=== PATIENT | female | born 1990 | race American Indian/Alaskan Native ===

== ENCOUNTER 2021-01-05 20:05 | Emergency (ER) | payer BC, MEDICAID ==
[2021-01-05 20:41] VITALS: BP 136/92
[2021-01-05] MEDS ORDERED: predniSONE 20 MG TAB PO ONE (20:46)
[2021-01-05] MEDS ORDERED: CLINDAMYCIN 150 MG CAP PO ONE (20:46)
[2021-01-05] MEDS ORDERED: IBUPROFEN 600 MG TAB PO ONE (20:46)
--- NOTE | 2021-01-05 20:55 | Emergency Department Report ---
- General Chief Complaint: Earache Stated Complaint: EAR PAIN Source: patient Mode of arrival: Ambulatory Limitations: No Limitations - History of Present Illness Initial Comments: Patient is a 30 yo AA female with no past medical history who presents to the ED with c/o acute onset persistent severe right ear pain for the last 2 weeks, worse in the last 2 days. Patient states that she was initially evaluated for the same at another hospital and given a 3 days course of Azithromycin with pain medications. Patient states that these medications did not help and that in the last 2 days the ear pain has worsened and now has muffled hearing on right ear. Patient denies dizziness, nausea, vomiting, chest pain, headache, chest pain, cough, sore throat, nasal and sinus congestion, fever and chills or vision changes. MD Complaint: other (severe right ear pain) -: Sudden, week(s) (2) Severity: severe Severity scale (0 -10): 9 Quality: sharp, aching Consistency: constant Improves With: nothing Worsens With: nothing Associated Symptoms: denies other symptoms, ear pain (right ear). denies: fever, chills, headache, rhinorrhea, nasal congestion, sore throat, cough, chest pain, shortness of breath, abdominal pain, nausea, vomiting, diarrhea, dysuria, rash, confusion, right sweats, weight loss, hoarseness Treatments Prior to Arrival: none - Related Data Previous Rx's Medication Instructions Recorded Last Taken Type Ciprofloxacin HCl/Dexameth 1 drop OTIC BID #7.5 ml 01/05/21 Unknown Rx [Ciprodex Otic Suspension] Clindamycin [Clindamycin CAP] 300 mg PO Q6H #40 capsule 01/05/21 Unknown Rx Ibuprofen [Motrin] 600 mg PO Q8H PRN #30 tablet 01/05/21 Unknown Rx predniSONE [Deltasone] 40 mg PO QDAY #10 tab 01/05/21 Unknown Rx traMADoL [Ultram] 50 mg PO Q6HR PRN #12 tablet 01/05/21 Unknown Rx ED Review of Systems ROS: Stated complaint: EAR PAIN Other details as noted in HPI Constitutional: denies: chills, fever Eyes: denies: eye pain, eye discharge, vision change ENT: ear pain (severe right ear pain). denies: throat pain, dental pain, hearing loss, congestion Respiratory: denies: cough, shortness of breath, wheezing Cardiovascular: denies: chest pain, palpitations Endocrine: no symptoms reported Gastrointestinal: denies: abdominal pain, nausea, vomiting, diarrhea, constipation, hematemesis, hematochezia Genitourinary: denies: urgency, dysuria, discharge Musculoskeletal: denies: back pain, joint swelling, arthralgia Skin: denies: rash, lesions Neurological: denies: headache, weakness, numbness, paresthesias, confusion, abnormal gait Psychiatric: denies: anxiety, depression Hematological/Lymphatic: denies: easy bleeding, easy bruising ED Past Medical Hx - Social History Smoking Status: Never Smoker Substance Use Type: None - Medications Home Medications: Home Medications Medication Instructions Recorded Confirmed Last Taken Type Ciprofloxacin HCl/Dexameth 1 drop OTIC BID #7.5 ml 01/05/21 Unknown Rx [Ciprodex Otic Suspension] Clindamycin [Clindamycin CAP] 300 mg PO Q6H #40 capsule 01/05/21 Unknown Rx Ibuprofen [Motrin] 600 mg PO Q8H PRN #30 tablet 01/05/21 Unknown Rx predniSONE [Deltasone] 40 mg PO QDAY #10 tab 01/05/21 Unknown Rx traMADoL [Ultram] 50 mg PO Q6HR PRN #12 tablet 01/05/21 Unknown Rx ED Physical Exam - General Limitations: No Limitations General appearance: alert, in no apparent distress - Head Head exam: Present: atraumatic, normocephalic, normal inspection - Eye Eye exam: Present: normal appearance, PERRL, EOMI Pupils: Present: normal accommodation - ENT ENT exam: Present: normal orophraynx, mucous membranes moist, other (swollen tender right ear canal; buldging erythematous right TM) - Neck Neck exam: Present: normal inspection, full ROM, lymphadenopathy. Absent: tenderness - Respiratory Respiratory exam: Present: normal lung sounds bilaterally. Absent: respiratory distress, wheezes, rales, rhonchi, chest wall tenderness, accessory muscle use, decreased breath sounds, prolonged expiratory - Cardiovascular Cardiovascular Exam: Present: regular rate, normal rhythm, normal heart sounds. Absent: systolic murmur, diastolic murmur, rubs, gallop - GI/Abdominal GI/Abdominal exam: Present: soft, normal bowel sounds. Absent: distended, tenderness, guarding, hyperactive bowel sounds, hypoactive bowel sounds, organomegaly - Extremities Exam Extremities exam: Present: normal inspection, full ROM, normal capillary refill - Back Exam Back exam: Present: normal inspection, full ROM. Absent: tenderness, CVA tenderness (R), CVA tenderness (L), muscle spasm, paraspinal tenderness, vertebral tenderness - Neurological Exam Neurological exam: Present: alert, oriented X3, CN II-XII intact, normal gait, reflexes normal - Psychiatric Psychiatric exam: Present: normal affect, normal mood - Skin Skin exam: Present: warm, dry, intact, normal color. Absent: rash ED Course Vital Signs 01/05/21 20:37 Pulse Rate 90 Respiratory 18 Rate Blood Pressure 136/92 O2 Sat by Pulse 100 Oximetry ED Medical Decision Making - Medical Decision Making This is a 30 yo AA female with no past medical history who presents to the ED with c/o acute onset persistent severe right ear pain for the last 2 weeks, worse in the last 2 days. Patient states that she was initially evaluated for the same at another hospital and given a 3 days course of Azithromycin with pain medications. Patient states that these medications did not help and that in the last 2 days the ear pain has worsened and now has muffled hearing on right ear. In the ED, patient is alert and oriented x 3 and is in no acute distress but appears to be in pain. Patient was treated for pain and also given initial oral antibiotics. Patient was thereafter discharged home on pain medications, oral antibiotics and ear drops. Patient was given a referral to the ENT physician, Dr. León for follow up in 3-5 days. Patient was also advised to follow up with her PCP in 7-10 days for reevaluation or return to the ED immediately if symptoms get worse. - Differential Diagnosis Otitis media, otitis externa; Lymphadenopathy; URI Critical care attestation.: If time is entered above; I have spent that time in minutes in the direct care of this critically ill patient, excluding procedure time. ED Disposition Clinical Impression: Acute otitis media with effusion of right ear Acute otitis externa of right ear Qualifiers: Otitis externa type: unspecified type Qualified Code(s): H60.501 - Unspecified acute noninfective otitis externa, right ear Disposition: DC/TX-65 PSY HOSP/PSY UNIT Is pt being admited?: No Does the pt Need Aspirin: No Condition: Stable Instructions: Ear Drops, Adult, [id number], Otitis Media, Adult, [id number], Otitis Externa, [id number] Additional Instructions: Take medication with food, drink plenty of fluids and follow up with your Primary care physician in 7-10 days. Consider following up with the ENT Physician in 3-5 days for reevaluation. Return to the ED immediately if symptoms get worse. Prescriptions: Ciprofloxacin HCl/Dexameth [Ciprodex Otic Suspension] 1 drop OTIC BID #7.5 ml Clindamycin [Clindamycin CAP] 300 mg PO Q6H #40 capsule predniSONE [Deltasone] 40 mg PO QDAY #10 tab Ibuprofen [Motrin] 600 mg PO Q8H PRN #30 tablet PRN Reason: Pain traMADoL [Ultram] 50 mg PO Q6HR PRN #12 tablet PRN Reason: Pain Referrals: [facility] [Provider Group] - 7-10 days FRANCISCA LEÓN MD [Staff Physician] - 3-5 Days Forms: Work/School Release Form(ED) Time of Disposition: 20:54 Print Language: MACEDONIAN
== END 2021-01-05 21:36 ==
LOC: ED 20:05
DX: H65.91 Unspecified nonsuppurative otitis media, right ear (principal); H60.501 Unspecified acute noninfective otitis externa, right ear; Z79.1 Long term (current) use of non-steroidal anti-inflammatories (NSAID); Z79.2 Long term (current) use of antibiotics; Z79.899 Other long term (current) drug therapy
CPT/HCPCS: 99282; J7512

== ENCOUNTER 2021-02-05 16:34 | Emergency (ER) | payer BC ==
[2021-02-05] MEDS ORDERED: ACETAMINOPHEN 325 MG TAB PO ONE (17:27)
[2021-02-05] MEDS ORDERED: ONDANSETRON 4 MG ODT TAB PO ONE (17:27)
--- NOTE | 2021-02-05 17:31 | Event Note ---
ED Screening Note Date of service: 02/05/21 Time: 17:25 ED Screening Note: 30-year-old -[place] female presents to the emergency room for abdominal pain, nausea vomiting diarrhea body aches chills dizziness and lightheadedness. Patient has not had a Covid test. Last menstrual period was 01/17/2021. Patient has not taken anything for her symptoms. This initial assessment/diagnostic orders/clinical plan/treatment(s) is/are subject to change based on patients health status, clinical progression and re- assessment by fellow clinical providers in the ED. Further treatment and workup at subsequent clinical providers discretion. Patient/guardian urged not to elope from the ED as their condition may be serious if not clinically assessed and managed. Initial orders include:
[2021-02-05 18:03] LABS: Basophils % (Auto) 0.3 % (0.0-1.8); Eosinophils % (Auto) 0.4 % (0.0-4.3); Hematocrit 35.2 % (30.3-42.9); Hemoglobin 11.6 gm/dl (10.1-14.3); Lymphocytes # (Auto) 0.7 K/mm3 (1.2-5.4); Lymphocytes % (Auto) 12.6 % (13.4-35.0); Mean Corpuscular HGB Conc 33 % (30-34); Mean Corpuscular Volume 88 fl (79-97); Monocytes # (Auto) 0.4 K/mm3 (0.0-0.8); Monocytes % (Auto) 7.9 % (0.0-7.3); Platelet Count 204 K/mm3 (140-440); Red Blood Count 4.01 M/mm3 (3.65-5.03); Red Cell Distribution Width 15.6 % (13.2-15.2)
[2021-02-05 18:22] LABS: Alanine Aminotransferase 15 units/L (7-56); Albumin 4.2 g/dL (3.9-5); BUN/Creatinine Ratio 13; Blood Urea Nitrogen 10 mg/dL (7-17); Calcium 8.4 mg/dL (8.4-10.2); Hemolysis Index 6
[2021-02-05 18:45] LABS: Bilirubin,Urine NEG (Negative); Blood,Urine NEG (Negative); Color,Urine Yellow (Yellow); Mucus,Urine FEW /HPF; Protein,Urine <15 mg/dL mg/dL (Negative); Urobilinogen,Urine < 2.0 mg/dL (<2.0); WBC,Urine < 1.0 /HPF (0.0-6.0)
[2021-02-05 18:50] LABS: HCG Qualitative,Urine Negative (Negative)
[2021-02-05] MEDS ORDERED: ONDANSETRON 4 MG/2 ML INJ IV STA (20:18)
[2021-02-05] MEDS ORDERED: HYOSCYAMINE SUBL 0.125 MG TAB SL ONE (20:18)
[2021-02-05] MEDS ORDERED: SODIUM CHLORIDE 0.9% 1000 ML 1,000 ML IV ONE (20:18)
[2021-02-05] MEDS ORDERED: KETOROLAC 30 MG/1 ML INJ IV STA (20:18)
--- NOTE | 2021-02-05 20:27 | Emergency Department Report ---
ED N/V/D HPI - General Chief complaint: Chest Pain Stated complaint: CHEST PAIN/LIGHT HEADED/STOMACH ACHE Time Seen by Provider: 02/05/21 20:18 Source: patient Mode of arrival: Ambulatory Limitations: No Limitations - History of Present Illness MD complaint: nausea, vomiting, diarrhea -: Gradual Description of Vomiting: other Description of Diarrhea: other Associated Abdominal Pain: No Location: diffuse Radiation: none Severity: mild, moderate Quality: cramping Consistency: constant Improves with: none Worsens with: none Context: possible food poisoning (Ms. Plata ate out and then developed some symptoms hours after eating which is worsened since the onset and now appears to be plateauing but not improving) Associated Symptoms: malaise. denies: myalgias, chest pain, diaphoresis, headaches, rash, dysuria, shortness of breath, syncope - Related Data Previous Rx's Medication Instructions Recorded Last Taken Type Hyoscyamine Subl [Levsin Sl 0.125 0.125 mg SL Q6HR PRN #20 tab 02/05/21 Unknown Rx TAB] Ondansetron [Zofran ODT TAB] 8 mg PO Q12HR #14 tab.rapdis 02/05/21 Unknown Rx Allergies Allergy/AdvReac Type Severity Reaction Status Date / Time amoxicillin AdvReac Unknown Verified 02/05/21 17:02 Penicillins AdvReac Unknown Verified 02/05/21 17:02 ED Review of Systems ROS: Stated complaint: CHEST PAIN/LIGHT HEADED/STOMACH ACHE Other details as noted in HPI Comment: All other systems reviewed and negative ED Past Medical Hx - Past Medical History Previous Medical History?: No - Surgical History Past Surgical History?: No - Social History Smoking Status: Never Smoker Substance Use Type: None - Medications Home Medications: Home Medications Medication Instructions Recorded Confirmed Last Taken Type Hyoscyamine Subl [Levsin Sl 0.125 0.125 mg SL Q6HR PRN #20 tab 02/05/21 Unknown Rx TAB] Ondansetron [Zofran ODT TAB] 8 mg PO Q12HR #14 tab.rapdis 02/05/21 Unknown Rx ED Physical Exam - General Limitations: No Limitations General appearance: alert, in no apparent distress - Head Head exam: Present: atraumatic, normocephalic - Eye Eye exam: Present: normal appearance, EOMI Pupils: Present: normal accommodation - ENT ENT exam: Present: normal exam, normal orophraynx, mucous membranes moist - Neck Neck exam: Present: normal inspection, full ROM - Respiratory Respiratory exam: Present: normal lung sounds bilaterally. Absent: respiratory distress, wheezes, rales - Cardiovascular Cardiovascular Exam: Present: regular rate, normal rhythm. Absent: systolic murmur, diastolic murmur, rubs, gallop - GI/Abdominal GI/Abdominal exam: Present: soft, tenderness (Diffuse atrophy diffuse abdomen with palpation.), normal bowel sounds, hyperactive bowel sounds - Extremities Exam Extremities exam: Present: normal inspection - Back Exam Back exam: Present: normal inspection - Neurological Exam Neurological exam: Present: alert, oriented X3, CN II-XII intact, normal gait - Psychiatric Psychiatric exam: Present: normal affect, normal mood - Skin Skin exam: Present: warm, dry, intact, normal color. Absent: rash ED Course Vital Signs 02/05/21 16:59 Temperature 99.7 F H Pulse Rate 108 H Respiratory 20 Rate Blood Pressure 115/70 O2 Sat by Pulse 100 Oximetry ED Medical Decision Making - Lab Data Result diagrams: 02/05/21 17:36 02/05/21 17:36 - Medical Decision Making Patient presents to the emergency department with nausea, vomiting, diarrhea, differential diagnosis includes possible acute gastroenteritis. Abdominal examination without peritoneal signs. Currently patient is euvolemic without evidence of dehydration. No evidence of surgical abdomen or other acute medical emergency including bowel obstruction, viscus perforation, vascular catastrophe, appendicitis, cholecystitis at this time. Presentation not consistent with other acute emergent causes of vomiting and diarrhea at this time. No indication for abdominal imaging. Patient responded well to the treatment to be discharged Plan supportive care, oral/IV rehydration, antiemetics and reassess Critical care attestation.: If time is entered above; I have spent that time in minutes in the direct care of this critically ill patient, excluding procedure time. ED Disposition Clinical Impression: Gastroenteritis Disposition: DC-01 TO HOME OR SELFCARE Is pt being admited?: No Does the pt Need Aspirin: No Condition: Stable Instructions: Viral Gastroenteritis, Adult, Food Choices to Help Relieve Diar melisa, Adult, Colitis, E. Coli Infection Prescriptions: Hyoscyamine Subl [Levsin Sl 0.125 TAB] 0.125 mg SL Q6HR PRN #20 tab PRN Reason: abdominal pain /cramping Ondansetron [Zofran ODT TAB] 8 mg PO Q12HR #14 tab.[email or web address] Referrals: [facility] [Provider Group] - 3-5 Days PRIMARY CARE, [Primary Care Provider] - 3-5 Days BROOKE DICKERSON MD [Staff Physician] - 3-5 Days
[2021-02-05 23:01] VITALS: BP 112/80
--- NOTE | 2021-02-06 09:55 | Electrocardiograph Report ---
[facility] Test Date: 2021-02-05 Test Time: 17:03:40 Pat Name: YASMINE RATLIFF Department: Room: Gender: F Lozenge Maker: CRISTINO TAYLORB: 1990 Requested By: SHARON LOMELI III Order Number: [id number] Reading MD: Miguel Hidalgo Measurements Intervals Childs Rate: 98 P: 76 MS: 127 QRS: 27 QRSD: 87 T: 27 QT: 340 QTc: 435 Interpretive Statements Sinus rhythm No previous ECG available for comparison Electronically Signed On 02-06-2021 6:54:48 PDT by Miguel Hidalgo
== END 2021-02-05 23:00 | disposition home or self-care (01) ==
LOC: ED 16:34
DX: K52.9 Noninfective gastroenteritis and colitis, unspecified (principal); Z79.899 Other long term (current) drug therapy; Z88.1 Allergy status to other antibiotic agents; Z88.0 Allergy status to penicillin
CPT/HCPCS: 36415; 80053; 81001; 81025; 83690; 85025; 93005; 96361; 96374; 96375; 99283; J1885; J2405; J7030